=== PATIENT | female | born 1960 | race American Indian/Alaskan Native ===

== ENCOUNTER 2020-06-11 18:34 | Emergency (ER) | payer MEDICARE ==
[2020-06-11] MEDS ORDERED: ETOMIDATE 20 MG/10 ML INJ IV ONE (18:58)
[2020-06-11] MEDS ORDERED: SUCCINYLCHOLINE CHLORIDE 200 MG/10 ML INJ MDV ONE (18:59)
== END 2020-06-11 19:28 | disposition left against medical advice (07) ==
LOC: ED 18:34
DX: J40 Bronchitis, not specified as acute or chronic (principal); Z53.21 Procedure and treatment not carried out due to patient leaving prior to being seen by health care provider
CPT/HCPCS: J0330